=== PATIENT | male | born 1995 | race American Indian/Alaskan Native ===

== ENCOUNTER 2017-12-30 02:27 | Inpatient (IN) | payer MEDICAID ==
[2017-12-30] MEDS ORDERED: ATROVENT IH ONE ×2 (02:34→03:00)
[2017-12-30] MEDS ORDERED: PROVENTIL IH ONE ×2 (02:34→03:00)
[2017-12-30] MEDS ORDERED: MAGNESIUM SULFATE 2GM/50ML 2 GM/50 ML BAG IV ONE (02:40)
--- NOTE | 2017-12-30 02:45 | Emergency Department Report ---
ED Asthma HPI - General Stated Complaint: DREW/ASTHMA Time Seen by Provider: 12/30/17 02:38 Source: patient, EMS - History of Present Illness Initial Comments: Patient is 22 years old male history of asthma brought by EMS with acute asthma attack started this morning. Patient is me using his albuterol was no improvement. Patient denied any fever or chest pain, nausea or vomiting. MD Complaint: "asthma attack", shortness of breath, wheezing -: Gradual Asthma History: childhood onset Severity: moderate Context: none known Associated Symptoms: none Treatments Prior to Arrival: inhaled bronchodilator - Related Data Previous Rx's Medication Instructions Recorded Last Taken Type predniSONE [Deltasone] 50 mg PO QDAY #5 tab 11/02/15 Unknown Rx Allergies Allergy/AdvReac Type Severity Reaction Status Date / Time amoxicillin Allergy Hives Verified 11/02/15 09:58 Penicillins Allergy Hives Verified 11/02/15 09:58 ED Review of Systems ROS: Stated complaint: DREW/ASTHMA Other details as noted in HPI Comment: All other systems reviewed and negative Constitutional: denies: chills, fever ENT: denies: throat pain Respiratory: shortness of breath, wheezing. denies: cough, orthopnea, SOB with exertion, SOB at rest Cardiovascular: dyspnea on exertion. denies: chest pain, palpitations, edema, syncope, paroxysmal nocturnal dyspnea Gastrointestinal: denies: abdominal pain, nausea, vomiting, diarrhea, constipation, hematemesis, hematochezia Neurological: denies: headache ED Past Medical Hx - Past Medical History Hx Asthma: Yes - Surgical History Hx Appendectomy: Yes - Social History Smoking Status: Never Smoker Substance Use Type: None - Medications Home Medications: Home Medications Medication Instructions Recorded Confirmed Last Taken Type predniSONE [Deltasone] 50 mg PO QDAY #5 tab 11/02/15 Unknown Rx ED Physical Exam - General General appearance: alert, in distress - Head Head exam: Present: atraumatic, normocephalic - Eye Eye exam: Present: normal appearance, PERRL - ENT ENT exam: Present: normal exam, normal orophraynx, mucous membranes moist - Neck Neck exam: Present: normal inspection, full ROM. Absent: tenderness, meningismus - Respiratory Respiratory exam: Present: wheezes, accessory muscle use, decreased breath sounds, prolonged expiratory. Absent: rales, rhonchi, stridor, chest wall tenderness - Cardiovascular Cardiovascular Exam: Present: regular rate, normal rhythm, normal heart sounds - GI/Abdominal GI/Abdominal exam: Present: soft, normal bowel sounds. Absent: distended, tenderness, guarding, rebound, rigid, organomegaly, mass, bruit, pulsatile mass , hernia - Extremities Exam Extremities exam: Present: normal inspection, full ROM, normal capillary refill - Back Exam Back exam: Present: normal inspection, full ROM, CVA tenderness (L) - Neurological Exam Neurological exam: Present: alert, oriented X3, CN II-XII intact - Skin Skin exam: Present: warm, intact, normal color ED Course Vital Signs 12/30/17 12/30/17 12/30/17 02:28 02:30 02:34 Pulse Rate 100 H Pulse Rate [ Anterior Bilateral Throughout] Respiratory 24 Rate Respiratory Rate [Anterior Bilateral Throughout] Blood Pressure 127/80 127/80 O2 Sat by Pulse 97 96 98 Oximetry 12/30/17 12/30/17 12/30/17 02:40 02:46 03:00 Pulse Rate 86 97 H Pulse Rate [ 96 H Anterior Bilateral Throughout] Respiratory 16 16 Rate Respiratory 24 Rate [Anterior Bilateral Throughout] Blood Pressure 133/73 133/73 O2 Sat by Pulse 100 100 Oximetry 12/30/17 12/30/17 12/30/17 03:15 03:30 03:35 Pulse Rate 86 101 H Pulse Rate [ 94 H Anterior Bilateral Throughout] Respiratory 14 12 Rate Respiratory 22 Rate [Anterior Bilateral Throughout] Blood Pressure 141/63 127/77 O2 Sat by Pulse 100 99 Oximetry 12/30/17 12/30/17 12/30/17 03:42 03:45 03:50 Pulse Rate 109 H Pulse Rate [ 95 H Anterior Bilateral Throughout] Respiratory 11 L 18 Rate Respiratory 22 Rate [Anterior Bilateral Throughout] Blood Pressure 136/83 O2 Sat by Pulse 100 Oximetry 12/30/17 12/30/17 12/30/17 03:52 04:00 04:15 Pulse Rate 100 H 105 H Pulse Rate [ 102 H Anterior Bilateral Throughout] Respiratory 19 12 Rate Respiratory 22 Rate [Anterior Bilateral Throughout] Blood Pressure 144/70 155/74 O2 Sat by Pulse 97 84 Oximetry 12/30/17 12/30/17 04:30 04:45 Pulse Rate 111 H 111 H Pulse Rate [ Anterior Bilateral Throughout] Respiratory 16 16 Rate Respiratory Rate [Anterior Bilateral Throughout] Blood Pressure 145/76 143/72 O2 Sat by Pulse 95 97 Oximetry - Reevaluation(s) Reevaluation #1: 12/30/17 05:15 Patient is still very tight with diffuse wheezing and diminished breath sound. Patient will need to be admitted to the hospital for further management. I discussed the patient is Dr. Slade who advised to bridge to Med-Surg. ED Medical Decision Making - Lab Data Result diagrams: 12/30/17 02:48 12/30/17 02:48 - Radiology Data Radiology results: report reviewed Referring Physician: XUAN GUTIERREZ Patient Name: NAKITA MURGUIA Date of : 1995 Sex: Male Report Date: 2017-12-30 Report Status: Finalized Findings [facility] [address] [place] [address] XRay Report Signed Patient: NAKITA MURGUIA MR#: [id number] : 1995 Acct:[id number] Age/Sex: 22 / M ADM Date: 12/30/17 Loc: ED Attending Dr: Ordering Physician: XUAN GUTIERREZ Date of Service: 12/30/17 Procedure(s): XR chest 1V ap Accession Number(s): [id number] cc: XUAN GUTIERREZ Fluoro Time In Minutes: FINAL REPORT EXAM: XR CHEST 1V AP HISTORY: Asthma COMPARISON: None available. FINDINGS: Frontal view(s) of the chest obtained. Cardiac silhouette within normal limits. No gross consolidation or effusion. No pneumothorax. IMPRESSION: No grossly acute findings. Transcribed By: LMA Dictated By: ELISABETH JEAN BAPTISTE MD Electronically Authenticated By: ELISABETH JEAN BAPTISTE MD Signed Date/Time: 12/30/17254 DD/ 4 TD/TT: 12/30/17254 Critical care attestation.: If time is entered above; I have spent that time in minutes in the direct care of this critically ill patient, excluding procedure time. ED Disposition Clinical Impression: Acute asthma exacerbation Disposition: OP ADMIT IP TO THIS HOSP Is pt being admited?: Yes Condition: Stable
[2017-12-30] MEDS ORDERED: MAGNESIUM SULFATE IV ONE (02:54)
--- NOTE | 2017-12-30 02:59 | XRay Report ---
FINAL REPORT EXAM: XR CHEST 1V AP HISTORY: Asthma COMPARISON: None available. FINDINGS: Frontal view(s) of the chest obtained. Cardiac silhouette within normal limits. No gross consolidation or effusion. No pneumothorax. IMPRESSION: No grossly acute findings.
[2017-12-30 03:16] LABS: BUN/Creatinine Ratio 14; Blood Urea Nitrogen 13 mg/dL (9-20); Hemolysis Index 12
[2017-12-30 03:22] LABS: Hematocrit 44.2 % (35.5-45.6); Hemoglobin 15.2 gm/dl (11.8-15.2); Mean Corpuscular HGB Conc 34 % (32-34); Mean Corpuscular Hemoglobin 31 pg (28-32); Mean Corpuscular Volume 91 fl (84-94); Platelet Count 279 K/mm3 (140-440); Red Blood Count 4.89 M/mm3 (3.65-5.03); Red Cell Distribution Width 12.3 % (13.2-15.2)
[2017-12-30] MEDS ORDERED: S2 RACEPINEPHRINE 2.25% IH ONE (03:36)
[2017-12-30] MEDS ORDERED: XOPENEX IH ONE (05:15)
[2017-12-30 05:30] LABS: Total Cells Counted 100
[2017-12-30 05:31] LABS: Platelet Estimate Consistent w Auto
[2017-12-30] MEDS ORDERED: PROVENTIL IH PRN (09:17)
[2017-12-30] MEDS: DUONEB *Not for PRN Use IH SCH ×2 (09:22→15:53)
[2017-12-30] MEDS ORDERED: NORCO 5/325 PO PRN (09:30)
[2017-12-30] MEDS ORDERED: APRESOLINE IV PRN (09:30)
[2017-12-30] MEDS ORDERED: ALUM-MAG HYDROX-SIMETH 200-200-20MG/5ML PO PRN (09:30)
[2017-12-30] MEDS ORDERED: PULMICORT IH SCH (09:30)
[2017-12-30] MEDS ORDERED: TYLENOL PO PRN (09:30)
[2017-12-30] MEDS ORDERED: REGLAN PO PRN (09:30)
--- NOTE | 2017-12-30 10:43 | History and Physical Report ---
History of Present Illness Date of examination: 12/30/17 Date of admission: 12/30/17 05:17 Chief complaint: Difficulty breathing History of present illness: This is a 22 y/o male with h/o asthma brought by EMS with acute asthma attack started this morning. Patient was using his albuterol at home without any improvement. Patient denied any fever or chest pain, nausea or vomiting. He was given nebulizer breathing treatment in the ER along with high dose solumedrol. His symptom improved somewhat but did not resolve completely. His chest x-ray showed no infiltrates. He will be admitted for further evaluation and management. Past medical History: h/o asthma Past surgical History: s/p appendectomy Social History: Lives with family, denies any smoking, drinking and elicit drug abuse. Family History: Significant for hypertension Review of System: Constitutional: no fever, no chills, no weight loss Ears, eyes, nose, mouth and throat: no nasal congestion, no nasal discharge, no sinus pressure, no vision change, no red eye. Neck: No neck pain or rigidity. Cardiovascular: No chest pain, no orthopnea, no palpitations, no leg swelling Respiratory: + shortness of breath, + cough, + congestion, + wheezing Gastrointestinal: no abdominal pain, no nausea, no vomiting Genitourinary : no dysuria, no hematuria Musculoskeletal: no joint swelling or muscle ache Integumentary: no rash, no pruritis Neurological: no parathesias, no numbness, no tingling Endocrine: no cold or heat intolerance, no polyuria or polydipsia Hematologic/Lymphatic: no easy bruising, no easy bleeding, no gland swelling Allergic/Immunologic: no urticaria, no angioedema. Medications and Allergies Allergies Allergy/AdvReac Type Severity Reaction Status Date / Time amoxicillin Allergy Hives Verified 11/02/15 09:58 Penicillins Allergy Hives Verified 11/02/15 09:58 Home Medications Medication Instructions Recorded Confirmed Last Taken Type ALBUTEROL Inhaler [Proair] 1 - 2 puff IH QDAY 12/30/17 12/30/17 12/30/17 History Active Meds: Active Medications Acetaminophen (Tylenol) 650 mg PO Q4H PRN PRN Reason: Pain MILD(1-3)/Fever >100.5/RODRIGUES Acetaminophen/Hydrocodone Bitart (Cawood 5/325) 2 each PO Q6H PRN PRN Reason: Pain, Moderate (4-6) Al Hydrox/Mg Hydrox/Simethicone (Alum-Mag Hydrox-Simeth [id number]/5ml) 30 ml PO Q4H PRN PRN Reason: Indigestion Albuterol (Proventil) 2.5 mg IH Q4HRT PRN PRN Reason: Shortness Of Breath Albuterol/Ipratropium (Duoneb *Not For Prn Use*) 1 ampul IH TIDRT [facility] Last Admin: 12/30/17 09:22 Dose: 1 ampul Budesonide (Pulmicort) 0.5 mg IH Q12HRT [facility] Last Admin: 12/30/17 09:22 Dose: 0.5 mg Docusate Sodium (Colace) 100 mg PO BID NICHOLAS Enoxaparin Sodium (Lovenox) 40 mg SUB-Q QDAY@2200 NICHOLAS Hydralazine HCl (Apresoline) 5 mg IV Q30MIN PRN PRN Reason: Hypertension Insulin Human Regular (Humulin R) 0 units SUB-Q [facility]; Protocol Methylprednisolone Sodium Succinate (Solu-Medrol) 60 mg IV Q8HR NICHOLAS Metoclopramide HCl (Reglan) 10 mg PO Q6H PRN PRN Reason: Nausea And Vomiting Pantoprazole Sodium (Protonix) 40 mg PO QDAY [facility] Exam - Physical Exam Narrative exam: GENERAL: well-developed and well-nourished male lying on bed appeared to be in no discomfort. HEENT: Normocephalic. Atraumatic. No conjunctival congestion or icterus. Patient has moist mucous membranes. NECK: Supple. Trachea midline. CHEST/LUNGS: +wheezes auscultated bilaterally, breathing symmetrical HEART/CARDIOVASCULAR: Regular in rate and rhythm. S1 and S2 positive. ABDOMEN: Abdomen is soft, nontender. Patient has normal bowel sounds. SKIN: There is no rash. Warm and dry. NEURO: No focal motor deficit. Follows command. MUSCULOSKELETAL: No joint effusion or tenderness. EXTRIMITY: No edema, no cyanosis or clubbing. PSYCH: Cooperative. - Constitutional Vitals: Temp Pulse Resp BP Pulse Ox 98.2 F 117 H 20 116/65 98 12/30/17 08:06 12/30/17 09:34 12/30/17 09:34 12/30/17 08:06 12/30/17 09:14 Results - Labs CBC & Chem 7: 12/30/17 02:48 12/30/17 02:48 Labs: Abnormal lab results 12/30/17 12/30/17 Range/Units 02:48 02:48 RDW 12.3 L (13.2-15.2) % Seg Neuts % (Manual) 21.0 L (40.0-70.0) % Lymphocytes % (Manual) 65.0 H (13.4-35.0) % Eosinophils % (Manual) 9.0 H (0.0-4.3) % Seg Neutrophils # Man 1.3 L (1.8-7.7) K/mm3 Eosinophils # (Manual) 0.5 H (0.0-0.4) K/mm3 Glucose 115 H (75-100) mg/dL - Imaging and Cardiology Chest x-ray: report reviewed Assessment and Plan Acute asthma exacerbation Acute hypoxic respiratory failure due to asthma exacerbation - We'll admit the patient to telemetry - Will provide scheduled nebulizers and breathing treatment - Place on empiric steroid and antibiotic - will get sputum culture, chest x-ray was unremarkable - Provide supplemental oxygen to keep oxygen saturation above 92% - Consider to consult pulmonary if no improvement in next 24 hours - We'll place on sliding scale of insulin as patient will be on empiric steroid - We will resume home medications, monitor BP - Provide DVT prophylaxis with Lovenox.
[2017-12-30] MEDS ORDERED: HumuLIN R SUB-Q SCH (11:30)
[2017-12-30] MEDS ORDERED: PROTONIX PO SCH (12:00)
[2017-12-30] MEDS ORDERED: COLACE PO SCH (12:00)
--- NOTE | 2017-12-30 13:30 | Discharge Summary ---
Providers - Providers Date of Admission: 12/30/17 05:17 Date of discharge: 12/30/17 Attending physician: JOSE LO Primary care physician: CAREY PORTER Hospitalization Condition: Stable Hospital course: This is a 22 y/o male with h/o asthma brought by EMS with acute asthma attack started this morning. Patient was using his albuterol at home without any improvement. Patient denied any fever or chest pain, nausea or vomiting. He was given nebulizer breathing treatment in the ER along with high dose solumedrol. His symptom improved somewhat but did not resolve completely. His chest x-ray showed no infiltrates. He will be admitted for further evaluation and management. His symptom improved significantly after couple rounds of breathing treatments and empiric steroid. Patient did not want to stay in the hospital overnight and wanted to continue the medications at home and follow up outpatient. He was counseled about the recurrence of symptoms and most likely symptom could get worse once discharged before due time. He verbalizes understanding and still wanted to go home. His vitals were stable and developed wheezing was much improved. He was tolerating diet and ambulating independently without any short of breath. He was discharged home in stable condition. Discharge diagnosis: Acute hypoxic respiratory failure due to asthma exacerbation, resolved Acute exacerbation of asthma, significantly improved Sinus tachycardia and tachypnea, due to asthma exacerbation, improved Disposition: DC-01 TO HOME OR SELFCARE Time spent for discharge: 32 minutes Core Measure Documentation - Palliative Care Palliative Care/ Comfort Measures: Not Applicable - Core Measures Any of the following diagnoses?: none Exam - Physical Exam Narrative exam: GENERAL: well-developed and well-nourished male lying on bed appeared to be in no discomfort. HEENT: Normocephalic. Atraumatic. No conjunctival congestion or icterus. Patient has moist mucous membranes. NECK: Supple. Trachea midline. CHEST/LUNGS: Very few wheezes auscultated bilaterally, breathing symmetrical HEART/CARDIOVASCULAR: Regular in rate and rhythm. S1 and S2 positive. ABDOMEN: Abdomen is soft, nontender. Patient has normal bowel sounds. SKIN: There is no rash. Warm and dry. NEURO: No focal motor deficit. Follows command. MUSCULOSKELETAL: No joint effusion or tenderness. EXTRIMITY: No edema, no cyanosis or clubbing. PSYCH: Cooperative. - Constitutional Vitals: Temp Pulse Resp BP Pulse Ox 98.3 F 108 H 16 113/43 98 12/30/17 11:41 12/30/17 11:41 12/30/17 11:41 12/30/17 11:41 12/30/17 11:41 Plan Activity: advance as tolerated Weight Bearing Status: Weight Bear as Tolerated Diet: regular Follow up with: ROD ELDER MD [Staff Physician] - 3-5 Days Prescriptions: ALBUTEROL Inhaler [ProAir HFA Inhaler] 1 - 2 puff IH QDAY 30 Days inha Fluticasone/Salmeterol [Advair 250-50 Diskus] 1 each IH BID 30 Days [facility] predniSONE [Deltasone] 50 mg PO QDAY #7 tab
[2017-12-30 16:26] VITALS: BP 124/42
[2017-12-30] MEDS ORDERED: LOVENOX SUB-Q SCH (22:00)
== END 2017-12-30 18:11 | disposition home or self-care (01) | DRG 189 ==
LOC: ED 02:27 → 3A 05:17
PROVIDERS: ADMIT Internal Medicine; ATTEND Internal Medicine
PROC: 5A09357 Assistance with Respiratory Ventilation, Less than 24 Consecutive Hours, Continuous Positive Airway Pressure (ICD-10-PCS; principal; 2017-12-30)
DX: J96.01 Acute respiratory failure with hypoxia (principal); J45.901 Unspecified asthma with (acute) exacerbation; Z88.1 Allergy status to other antibiotic agents; Z88.0 Allergy status to penicillin; Z90.49 Acquired absence of other specified parts of digestive tract; Z82.49 Family history of ischemic heart disease and other diseases of the circulatory system
CPT/HCPCS: 36415; 71045; 80048; 85007; 85025; 94640; 94660; 96374; 96375; J2930; J3475

== ENCOUNTER 2019-08-06 22:13 | Observation (INO) | payer MEDICAID ==
[2019-08-06] MEDS ORDERED: IPRATROPIUM 0.02% NEBU 2.5 ML IH ONE (22:22)
[2019-08-06] MEDS ORDERED: LEVALBUTEROL 0.63 MG/3 ML NEBU IH ONE (22:24)
[2019-08-06] MEDS ORDERED: MAGNESIUM SULFATE 2 GM/50 ML BAG IV ONE (22:24)
--- NOTE | 2019-08-06 22:31 | Emergency Department Report ---
ED Asthma HPI - General Stated Complaint: ASTHMA Time Seen by Provider: 08/06/19 22:22 - History of Present Illness Initial Comments: Patient is 24 years old male with history of asthma, with history of respiratory arrest twice. Last intubation was last year. Patient presented to the ER via EMS for evaluation of sudden onset of shortness of breath and wheezing approximately one hour prior to coming to the ER. EMS stated that patient was tachypnic with diffuse wheezing. Patient given 5 mg of albuterol and Solu- Medrol 125 mg IV. Patient denied any recent history of fever, chills or cough. MD Complaint: "asthma attack", shortness of breath, wheezing -: Sudden, hour(s) Severity: severe - Related Data Previous Rx's Medication Instructions Recorded Last Taken Type ALBUTEROL Inhaler (OR & NICU) 1 - 2 puff IH QDAY 30 Days inha 12/30/17 Unknown Rx [ProAir HFA Inhaler] Fluticasone/Salmeterol [Advair 1 each IH BID 30 Days [facility] 12/30/17 Unknown Rx 250-50 Diskus] predniSONE [Deltasone] 50 mg PO QDAY #7 tab 12/30/17 Unknown Rx Allergies Allergy/AdvReac Type Severity Reaction Status Date / Time amoxicillin Allergy Hives Verified 11/02/15 09:58 Penicillins Allergy Hives Verified 11/02/15 09:58 ED Review of Systems ROS: Stated complaint: ASTHMA Other details as noted in HPI Comment: All other systems reviewed and negative Constitutional: denies: chills, fever Respiratory: shortness of breath, SOB with exertion, SOB at rest, wheezing. denies: cough Cardiovascular: denies: chest pain, palpitations Gastrointestinal: denies: abdominal pain, nausea, vomiting Musculoskeletal: denies: back pain ED Past Medical Hx - Past Medical History Hx Congestive Heart Failure: No Hx Diabetes: No Hx Asthma: Yes Hx COPD: No - Surgical History Hx Appendectomy: Yes - Social History Smoking Status: Never Smoker - Medications Home Medications: Home Medications Medication Instructions Recorded Confirmed Last Taken Type ALBUTEROL Inhaler (OR & NICU) 1 - 2 puff IH QDAY 30 Days inha 12/30/17 Unknown Rx [ProAir HFA Inhaler] Fluticasone/Salmeterol [Advair 1 each IH BID 30 Days [facility] 12/30/17 Unkn own Rx 250-50 Diskus] predniSONE [Deltasone] 50 mg PO QDAY #7 tab 12/30/17 Unknown Rx ED Physical Exam - General General appearance: alert, in distress - Head Head exam: Present: atraumatic, normocephalic, normal inspection - ENT ENT exam: Present: normal exam, normal orophraynx, mucous membranes moist - Neck Neck exam: Present: normal inspection, full ROM. Absent: tenderness, meningismus, lymphadenopathy, thyromegaly - Respiratory Respiratory exam: Present: normal lung sounds bilaterally - Cardiovascular Cardiovascular Exam: Present: regular rate, normal rhythm, normal heart sounds - GI/Abdominal GI/Abdominal exam: Present: soft, normal bowel sounds. Absent: distended, tenderness, guarding, rebound, rigid, organomegaly, mass, bruit, pulsatile mass, hernia - Extremities Exam Extremities exam: Present: normal inspection, full ROM, normal capillary refill. Absent: pedal edema, calf tenderness - Back Exam Back exam: Present: normal inspection, full ROM. Absent: CVA tenderness (R), CVA tenderness (L) - Neurological Exam Neurological exam: Present: alert, oriented X3, CN II-XII intact - Skin Skin exam: Present: warm, intact, normal color ED Course Vital Signs 08/06/19 08/06/19 08/06/19 22:43 22:48 23:37 Pulse Rate 109 H Pulse Rate [ 121 H 120 H Bilateral] Respiratory 19 Rate Respiratory 15 12 Rate [Bilateral ] Blood Pressure 149/70 Blood Pressure 149/70 [Left] O2 Sat by Pulse 100 Oximetry ED Medical Decision Making - Lab Data Result diagrams: 08/06/19 23:00 08/06/19 23:00 - Radiology Data Radiology results: image reviewed - Medical Decision Making Patient is 24 years old male with history of asthma, with history of respiratory arrest twice. Last intubation was last year. Patient presented to the ER via EMS for evaluation of sudden onset of shortness of breath and wheezing approximately one hour prior to coming to the ER. EMS stated that patient was tachypnic with diffuse wheezing. Patient given 5 mg of albuterol and Solu- Medrol 125 mg IV. Patient denied any recent history of fever, chills or cough. Patient received Xopenex, albuterol, Atrovent and magnesium sulfate. Patient stated that he started feeling better but is still tight. Patient does not re quire intubation at this moment. I discussed the patient with Dr. Tiarra Walton, she agreed to admit the patient to the hospital for further management. Critical Care Time: Yes Critical care time in (mins) excluding proc time.: 30 Critical care attestation.: If time is entered above; I have spent that time in minutes in the direct care of this critically ill patient, excluding procedure time. ED Disposition Clinical Impression: Acute asthma exacerbation Disposition: 09 OP ADMIT IP TO THIS HOSP Is pt being admited?: Yes Condition: Stable Referrals: PRIMARY CARE, [Primary Care Provider] - 3-5 Days
[2019-08-06] MEDS ORDERED: ALBUTEROL 2.5 MG/3 ML NEBU IH ONE (23:26)
[2019-08-07 00:02] LABS: Basophils # (Auto) 0.1 K/mm3 (0.0-0.1); Basophils % (Auto) 0.7 % (0.0-1.8); Eosinophils # (Auto) 0.4 K/mm3 (0.0-0.4); Eosinophils % (Auto) 4.9 % (0.0-4.3); Hematocrit 47.8 % (35.5-45.6); Lymphocytes # (Auto) 1.5 K/mm3 (1.2-5.4); Mean Corpuscular HGB Conc 34 % (32-34); Mean Corpuscular Volume 93 fl (84-94); Monocytes # (Auto) 0.4 K/mm3 (0.0-0.8); Monocytes % (Auto) 4.6 % (0.0-7.3); Platelet Count 311 K/mm3 (140-440); Red Blood Count 5.16 M/mm3 (3.65-5.03); Red Cell Distribution Width 12.4 % (13.2-15.2)
[2019-08-07 00:33] LABS: BUN/Creatinine Ratio 15; Blood Urea Nitrogen 17 mg/dL (9-20); Calcium 9.9 mg/dL (8.4-10.2); Hemolysis Index 27
--- NOTE | 2019-08-07 01:00 | XRay Report ---
CHEST 1 VIEW 2257 INDICATION / CLINICAL INFORMATION: Asthma. COMPARISON: None available. FINDINGS: SUPPORT DEVICES: None HEART / MEDIASTINUM: No significant abnormality. LUNGS / PLEURA: No significant pulmonary or pleural abnormality. No pneumothorax. ADDITIONAL FINDINGS: No significant additional findings. IMPRESSION: No significant acute abnormality Signer Name: Gavin Tellez MD Signed: 08/07/2019 12:56 AM Workstation Name: [id number]
[2019-08-07] MEDS ORDERED: ACETAMINOPHEN 325 MG TAB PO PRN (01:31)
[2019-08-07] MEDS ORDERED: ONDANSETRON 4 MG/2 ML INJ IV PRN (01:31)
--- NOTE | 2019-08-07 01:38 | History and Physical Report ---
History of Present Illness Date of examination: 08/07/19 History of present illness: 24 year old man with history of asthma comes to the emergency room complaints of cough productive of white phlegm, shortness of breath that started 1 week past since the weather is change. Using his nebulizer treatments without any pre ventive symptoms, today symptoms worsen psych into the emergency room for further evaluation Review Of Systems: Constitutional: no weight loss, fever, chills Ears, eyes, nose, mouth and throat: no nasal congestion, no nasal discharge, no sinus pressure, blurry vision, diplopia Neck: No neck pain or rigidity. Cardiovascular: No palpitations, chest pain Respiratory:+ shortness of breath, cough Gastrointestinal: No hematochezia, abdominal pain Genitourinary : no dysuria, frequency Musculoskeletal: no muscle ache , joint pain Integumentary: no rash, no pruritis Neurological: no parathesias, focal weakness Endocrine: no cold or heat intolerance, no polyuria or polydipsia Hematologic/Lymphatic: no easy bruising, no easy bleeding, no gland swelling Allergic/Immunologic: no urticaria, no angioedema. PAST MEDICAL HISTORY:asthma PAST SURGICAL HISTORY: Appendectomy FAMILY HISTORY:hypertension, diabetes SOCIAL HISTORY: + tobacco, Denies drugs, alcohol Medications and Allergies Allergies Allergy/AdvReac Type Severity Reaction Status Date / Time amoxicillin Allergy Hives Verified 11/02/15 09:58 Penicillins Allergy Hives Verified 11/02/15 09:58 Home Medications Medication Instructions Recorded Confirmed Last Taken Type ALBUTEROL Inhaler (OR & NICU) 1 - 2 puff IH QDAY 30 Days inha 12/30/17 Unknown Rx [ProAir HFA Inhaler] Fluticasone/Salmeterol [Advair 1 each IH BID 30 Days [facility] 12/30/17 Unknown Rx 250-50 Diskus] predniSONE [Deltasone] 50 mg PO QDAY #7 tab 12/30/17 Unknown Rx Active Meds: Active Medications Acetaminophen (Tylenol) 650 mg PO Q4H PRN PRN Reason: Pain MILD(1-3)/Fever >100.5/RODRIGUES Albuterol/Ipratropium (Duoneb *Not For Prn Use*) 1 ampul IH Q6HRT NICHOLAS Enoxaparin Sodium (Enoxaparin) 30 mg SUB-Q QDAY NICHOLAS Methylprednisolone Sodium Succinate (Solu-Medrol) 125 mg IV Q6HR NICHOLAS Ondansetron HCl (Zofran) 4 mg IV Q8H PRN PRN Reason: Nausea And Vomiting Sodium Chloride (Sodium Chloride Flush Syringe 10 Ml) 10 ml IV BID NICHOLAS Sodium Chloride (Sodium Chloride Flush Syringe 10 Ml) 10 ml IV PRN PRN PRN Reason: LINE FLUSH Exam - Physical Exam Narrative exam: General Apperance: The patient sitting in bed no acute distress HEENT: Normocephalic, atraumatic. Pupils equally round and reactive to light, extraocular movement intact, and no sclericterus or JVD or thyromegaly or nodule. Neck supple, no carotid bruit, mucous membranes moist, no exudate or erythema Heart: S1-S2, regular is rhythm Lungs: Wheezing bilaterally, breathing comfortable Abdomen: Positive bowel sounds, soft, nontender, nondistended, no organomegaly Extremities: No edema cyanosis clubbing Skin: no rash, nodule, warm and dry Neuro:CN 2 -12 intact, motor/sensory intact, speech is fluent - Constitutional Vitals: Temp Pulse Resp BP Pulse Ox 120 H 12 149/70 100 08/06/19 23:37 08/06/19 23:37 08/06/19 22:43 08/06/19 22:43 Results - Labs CBC & Chem 7: 08/06/19 23:00 08/06/19 23:00 Labs: Abnormal lab results 08/06/19 08/06/19 Range/Units 23:00 23:00 RBC 5.16 H (3.65-5.03) M/mm3 Hgb 16.0 H (11.8-15.2) gm/dl Hct 47.8 H (35.5-45.6) % RDW 12.4 L (13.2-15.2) % Eos % (Auto) 4.9 H (0.0-4.3) % Seg Neutrophils % 71.8 H (40.0-70.0) % Glucose 107 H (75-100) mg/dL - Imaging and Cardiology EKG: image reviewed Chest x-ray: report reviewed Assessment and Plan Assessment Asthma exacerbation Plan Admit to medicine Start high-dose steroids, breathing treatments DVT prophylaxis
[2019-08-07] MEDS ORDERED: methylPREDNISolone Sod Succinate 125 MG/2 ML INJ IV SCH (02:00)
[2019-08-07] MEDS: IPRATROPIUM/ALBUTEROL SULFATE 3 ML AMPUL.NEB IH SCH ×2 (03:08→07:42)
[2019-08-07 05:36] LABS: Hematocrit 49.2 % (35.5-45.6); Hemoglobin 16.3 gm/dl (11.8-15.2); Mean Corpuscular HGB Conc 33 % (32-34); Mean Corpuscular Volume 93 fl (84-94); Platelet Count 299 K/mm3 (140-440); Red Blood Count 5.27 M/mm3 (3.65-5.03); Red Cell Distribution Width 12.6 % (13.2-15.2)
[2019-08-07 05:48] LABS: BUN/Creatinine Ratio 18; Blood Urea Nitrogen 18 mg/dL (9-20); Calcium 9.4 mg/dL (8.4-10.2); Hemolysis Index 37
[2019-08-07 07:28] LABS: Basophils % (Manual) 0 % (0.0-1.8); Eosinophils % (Manual) 0 % (0.0-4.3); Monocytes % (Manual) 0 % (0.0-7.3); Total Cells Counted 100
[2019-08-07 07:29] LABS: Ovalocytes Few
[2019-08-07 07:30] LABS: Large Platelets 1+; Macrocytosis Rare; Platelet Estimate Consistent w Auto
--- NOTE | 2019-08-07 07:49 | Progress Note ---
Assessment and Plan Assessment and plan: Patient is a 24 year old man with history of asthma comes to the emergency room complaints of cough productive of white phlegm, shortness of breath that started 1 week past since the weather is change. Using his nebulizer treatments without any preventive symptoms, today symptoms worsen so he came to the emergency room for further evaluation Asthma exacerbation Plan Admit to medicine Start high-dose steroids, breathing treatments DVT prophylaxis prolonged inpatient services 32 minutes History Interval history: Patient was seen and examined. Follow-up on current diagnosis of Asthma exacerbation. Overnight uneventful. Patient denies any chest pain, [place] sea/vomiting or severe headaches. Imaging, nursing note, chart, labs and old chart reviewed. Discussed with patient. Hospitalist Physical - Physical exam Narrative exam: Gen: WDWN, NAD, Awake, Alert, Orientated HEENT: NCAT, EOMI, PERRL, OP Clear Neck: supple, no adenopathy, no thyromegaly, no JVD CVS/Heart: RRR, normal S1S2, pulses present bilaterally Chest/Lungs: bilateral wheezing, Symmetrical chest expansion, good air entry bilaterally GI/Abdomen: soft, NTND, good bowel sounds, no guarding or rebound /Bladder: no suprapubic tenderness, no CVA or paraspinal tenderness Extermity/Skin: no c/c/e, no obvious rash MSK: FROM x 4 Neuro: CN 2-12 grossly intact, no new focal deficits Psych: calm - Constitutional Vitals: Temp Pulse Resp BP Pulse Ox 100 H 16 129/71 97 08/07/19 07:33 08/07/19 07:33 08/07/19 07:33 08/07/19 07:33 Results - Labs CBC & Chem 7: 08/07/19 05:19 08/07/19 05:19 Labs: Laboratory Last Values WBC 12.5 K/mm3 (4.5-11.0) H 08/07/19 05:19 RBC 5.27 M/mm3 (3.65-5.03) H 08/07/19 05:19 Hgb 16.3 gm/dl (11.8-15.2) H 08/07/19 05:19 Hct 49.2 % (35.5-45.6) H 08/07/19 05:19 MCV 93 fl (84-94) 08/07/19 05:19 MCH 31 pg (28-32) 08/07/19 05:19 MCHC 33 % (32-34) 08/07/19 05:19 RDW 12.6 % (13.2-15.2) L 08/07/19 05:19 Plt Count 299 K/mm3 (140-440) 08/07/19 05:19 Lymph % (Auto) 18.0 % (13.4-35.0) 08/06/19 23:00 [place] % (Auto) 4.6 % (0.0-7.3) 08/06/19 23:00 Eos % (Auto) 4.9 % (0.0-4.3) H 08/06/19 23:00 Baso % (Auto) 0.7 % (0.0-1.8) 08/06/19 23:00 Lymph # 1.5 K/mm3 (1.2-5.4) 08/06/19 23:00 [place] # 0.4 K/mm3 (0.0-0.8) 08/06/19 23:00 Eos # 0.4 K/mm3 (0.0-0.4) 08/06/19 23:00 Baso # 0.1 K/mm3 (0.0-0.1) 08/06/19 23:00 Add Manual Diff Complete 08/07/19 05:19 Total Counted 100 08/07/19 05:19 Seg Neutrophils % [employer] Installer 08/07/19 05:19 Seg Neuts % (Manual) 99.0 % (40.0-70.0) H 08/07/19 05:19 Band Neutrophils % 0 % 08/07/19 05:19 Lymphocytes % (Manual) 1.0 % (13.4-35.0) L 08/07/19 05:19 Reactive Lymphs % (Man) 0 % 08/07/19 05:19 Monocytes % (Manual) 0 % (0.0-7.3) 08/07/19 05:19 Eosinophils % (Manual) 0 % (0.0-4.3) 08/07/19 05:19 Basophils % (Manual) 0 % (0.0-1.8) 08/07/19 05:19 Metamyelocytes % 0 % 08/07/19 05:19 Myelocytes % 0 % 08/07/19 05:19 Promyelocytes % 0 % 08/07/19 05:19 Blast Cells % 0 % 08/07/19 05:19 Nucleated RBC % Not Reportable 08/07/19 05:19 Seg Neutrophils # 6.0 K/mm3 (1.8-7.7) 08/06/19 23:00 Seg Neutrophils # Man 12.4 K/mm3 (1.8-7.7) H 08/07/19 05:19 Band Neutrophils # 0.0 K/mm3 08/07/19 05:19 Lymphocytes # (Manual) 0.1 K/mm3 (1.2-5.4) L 08/07/19 05:19 Abs React Lymphs (Man) 0.0 K/mm3 08/07/19 05:19 Monocytes # (Manual) 0.0 K/mm3 (0.0-0.8) 08/07/19 05:19 Eosinophils # (Manual) 0.0 K/mm3 (0.0-0.4) 08/07/19 05:19 Basophils # (Manual) 0.0 K/mm3 (0.0-0.1) 08/07/19 05:19 Metamyelocytes # 0.0 K/mm3 08/07/19 05:19 Myelocytes # 0.0 K/mm3 08/07/19 05:19 Promyelocytes # 0.0 K/mm3 08/07/19 05:19 Blast Cells # 0.0 K/mm3 08/07/19 05:19 WBC Morphology Not Reportable 08/07/19 05:19 Hypersegmented Neuts Not Reportable 08/07/19 05:19 Hyposegmented Neuts Not Reportable 08/07/19 05:19 Hypogranular Neuts Not Reportable 08/07/19 05:19 Smudge Cells Not Reportable 08/07/19 05:19 Toxic Granulation Not Reportable 08/07/19 05:19 Toxic Vacuolation Not Reportable 08/07/19 05:19 Dohle Bodies Not Reportable 08/07/19 05:19 Pelger-Huet Anomaly Not Reportable 08/07/19 05:19 Raul Rods Not Reportable 08/07/19 05:19 Platelet Estimate Consistent w auto 08/07/19 05:19 Clumped Platelets Not Reportable 08/07/19 05:19 Plt Clumps, EDTA Not Reportable 08/07/19 05:19 Large Platelets 1+ 08/07/19 05:19 Giant Platelets Not Reportable 08/07/19 05:19 Platelet Satelliting Not Reportable 08/07/19 05:19 Plt Morphology Comment Not Reportable 08/07/19 05:19 RBC Morphology Not Reportable 08/07/19 05:19 Dimorphic RBCs Not Reportable 08/07/19 05:19 Polychromasia Not Reportable 08/07/19 05:19 Hypochromasia Not Reportable 08/07/19 05:19 Poikilocytosis Not Reportable 08/07/19 05:19 Anisocytosis Not Reportable 08/07/19 05:19 Microcytosis Not Reportable 08/07/19 05:19 Macrocytosis Rare 08/07/19 05:19 Spherocytes Not Reportable 08/07/19 05:19 Pappenheimer Bodies Not Reportable 08/07/19 05:19 Sickle Cells Not Reportable 08/07/19 05:19 Target Cells Not Reportable 08/07/19 05:19 Tear Drop Cells Not Reportable 08/07/19 05:19 Ovalocytes Few 08/07/19 05:19 Helmet Cells Not Reportable 08/07/19 05:19 Montano-Hopkins Bodies Not Reportable 08/07/19 05:19 [place] Rings Not Reportable 08/07/19 05:19 Tanika Cells Not Reportable 08/07/19 05:19 Bite Cells Not Reportable 08/07/19 05:19 Crenated Cell Not Reportable 08/07/19 05:19 Elliptocytes Not Reportable 08/07/19 05:19 Acanthocytes (Spur) Not Reportable 08/07/19 05:19 Rouleaux Not Reportable 08/07/19 05:19 Hemoglobin C Crystals Not Reportable 08/07/19 05:19 Schistocytes Not Reportable 08/07/19 05:19 Malaria parasites Not Reportable 08/07/19 05:19 Miguel Angel Bodies Not Reportable 08/07/19 05:19 Hem Pathologist Commnt No 08/07/19 05:19 Sodium 140 mmol/L (137-145) 08/07/19 05:19 Potassium 4.9 mmol/L (3.6-5.0) 08/07/19 05:19 Chloride 103.5 mmol/L (98-107) 08/07/19 05:19 Carbon Dioxide 21 mmol/L (22-30) L 08/07/19 05:19 Anion Gap 20 mmol/L 08/07/19 05:19 BUN 18 mg/dL (9-20) 08/07/19 05:19 Creatinine 1.0 mg/dL (0.8-1.5) 08/07/19 05:19 Estimated GFR > 60 ml/min 08/07/19 05:19 BUN/Creatinine Ratio 18 % 08/07/19 05:19 Glucose 154 mg/dL (75-100) H 08/07/19 05:19 Calcium 9.4 mg/dL (8.4-10.2) 08/07/19 05:19 Active Medications - Current Medications Current Medications: Generic Name Dose Route Start Last Admin Trade Name Freq PRN Reason Stop Dose Admin Acetaminophen 650 mg 08/07/19 01:31 Tylenol PO Q4H PRN Pain MILD(1-3)/Fever >100.5/RODRIGUES Albuterol/Ipratropium 1 ampul 08/07/19 02:00 08/07/19 07:42 Duoneb *Not For Prn Use* IH 1 ampul Q6HRT NICHOLAS Administration Enoxaparin Sodium 40 mg 08/07/19 10:00 Enoxaparin SUB-Q QDAY@1000 NICHOLAS Methylprednisolone Sodium Succinate 125 mg 08/07/19 02:00 08/07/19 05:05 Solu-Medrol IV 125 mg Q6H NICHOLAS Administration Ondansetron HCl 4 mg 08/07/19 01:31 Zofran IV Q8H PRN Nausea And Vomiting Sodium Chloride 10 ml 08/07/19 10:00 Sodium Chloride Flush Syringe 10 Ml IV BID NICHOLAS Sodium Chloride 10 ml 08/07/19 01:31 Sodium Chloride Flush Syringe 10 Ml IV PRN PRN LINE FLUSH
--- NOTE | 2019-08-07 09:18 | Discharge Summary ---
Providers - Providers Date of Admission: 08/07/19 01:31 Date of discharge: 08/07/19 Attending physician: HI GREENE Primary care physician: ANNA STUBBS MD Hospitalization Condition: Stable Hospital course: Patient is a 24 year old man with history of asthma comes to the emergency room complaints of cough productive of white phlegm, shortness of breath that started 1 week past since the weather is change. Using his nebulizer treatments without any preventive symptoms, today symptoms worsen so he came to the emergency room for further evaluation Discharge Diagnosis: Asthma exacerbation Plan Admit to medicine Start high-dose steroids, breathing treatments DVT prophylaxis Patient is much better, no SOB and wants to go home. The steroids really helped and he ran out of medications and need refills Disposition: DC- TO HOME OR SELFCARE Time spent for discharge: 35 minutes Core Measure Documentation - Palliative Care Palliative Care/ Comfort Measures: Not Applicable - Core Measures Any of the following diagnoses?: none - VTE Discharge Requirements Deep Vein Thrombosis/Pulmonary Embolism Present on Admission: No Has pt received <5 days of overlap therapy or INR<2.0: No Anticoagulant overlap therapy prescribed at discharge: No Contraindication No Overlap Therapy order at DC: Not Indicated Exam - Physical Exam Narrative exam: Gen: WDWN, NAD, Awake, Alert, Orientated HEENT: NCAT, EOMI, PERRL, OP Clear Neck: supple, no adenopathy, no thyromegaly, no JVD CVS/Heart: RRR, normal S1S2, pulses present bilaterally Chest/Lungs: bilateral wheezing, Symmetrical chest expansion, good air entry bilaterally GI/Abdomen: soft, NTND, good bowel sounds, no guarding or rebound /Bladder: no suprapubic tenderness, no CVA or paraspinal tenderness Extermity/Skin: no c/c/e, no obvious rash MSK: FROM x 4 Neuro: CN 2-12 grossly intact, no new focal deficits Psych: calm - Constitutional Vitals: Temp Pulse Resp BP Pulse Ox 98.3 F 110 H 16 129/60 97 08/07/19 07:47 08/07/19 07:47 08/07/19 07:47 08/07/19 07:47 08/07/19 07:47 Plan Activity: other (no strenous activity unless cleared by PCP) Diet: regular Follow up with: PRIMARY CARE, [Primary Care Provider] - 3-5 Days Prescriptions: Fluticasone/Salmeterol [Advair Diskus 250-50 mcg] 1 puff IH BID #1 disk.w.dev Albuterol Sulfate [Albuterol 0.63% NEBS] 0.63 mg IH Q4H PRN 30 Days #30 ml PRN Reason: Shortness Of Breath methylPREDNISolone [Medrol 4MG DOSEPAK (21 tabs)] 1 dose PO DAILY #1 pack ALBUTEROL Inhaler (OR & NICU) [ProAir HFA Inhaler] 1 puff IH Q4H PRN #1 unit PRN Reason: Shortness Of Breath Budesonide [Pulmicort Respules] 0.5 mg IH Q12HR 30 Days #30 nebu
[2019-08-07] MEDS ORDERED: ENOXAPARIN 40 MG/0.4 ML INJ SUB-Q SCH (10:00)
[2019-08-07] MEDS ORDERED: ENOXAPARIN 30 MG/0.3 ML INJ SUB-Q SCH (10:00)
[2019-08-07 11:49] VITALS: BP 118/50
== END 2019-08-07 12:06 | disposition home or self-care (01) ==
LOC: ED 22:13 → 3A 08-07 01:31 → INTOOBSV 08-07 01:31
PROVIDERS: ADMIT Internal Medicine; ATTEND Internal Medicine
DX: J45.901 Unspecified asthma with (acute) exacerbation (principal); F17.200 Nicotine dependence, unspecified, uncomplicated; Z90.49 Acquired absence of other specified parts of digestive tract
CPT/HCPCS: 36415; 71045; 80048; 85007; 85025; 94640; 94644; 96365; 96372; 96375; 99291; G0378; J1650; J2930; J3475

== ENCOUNTER 2019-11-23 22:19 | Emergency (ER) | payer MEDICAID ==
[2019-11-23 22:30] VITALS: BP 123/67
--- NOTE | 2019-11-23 23:30 | XRay Report ---
CHEST 2 VIEWS INDICATION / CLINICAL INFORMATION: SOB, ASTHMATIC ATTACK WITH WHEEZING. COMPARISON: One view of the chest from 08/06/2019. FINDINGS: SUPPORT DEVICES: None. HEART / MEDIASTINUM: No significant abnormality. LUNGS / PLEURA: No significant pulmonary or pleural abnormality. No pneumothorax. ADDITIONAL FINDINGS: No significant additional findings. IMPRESSION: 1. No acute abnormality of the chest. Signer Name: Feliz Fagan MD Signed: 11/23/2019 11:26 PM Workstation Name: [id number]
[2019-11-24] MEDS ORDERED: ALBUTEROL 2.5 MG/3 ML NEBU IH ONE (00:41)
[2019-11-24] MEDS ORDERED: dexAMETHasone 20 MG/5 ML VIAL IM ONE (00:41)
[2019-11-24] MEDS ORDERED: IPRATROPIUM 0.02% NEBU 2.5 ML IH ONE (00:41)
--- NOTE | 2019-11-24 01:38 | Emergency Department Report ---
ED Asthma HPI - General Chief Complaint: Adult Asthma Stated Complaint: ASTHMA Time Seen by Provider: 11/24/19 00:18 Source: patient Mode of arrival: Ambulatory Limitations: No Limitations - History of Present Illness Initial Comments: Patient is a 24-year-old male presents emergency room with complaints of an asthma exacerbation that began yesterday. He has associated wheezing, shortness of breath, mild dry cough. He denies any fever, rhinorrhea, congestion, sore throat, ear pain. He states that he used his nebulizer treatment approximately 3-4 times yesterday. He denies any other past medical history. He states he has an allergy to penicillin. He states he is a non-smoker but states that he is around smokers. - Related Data Previous Rx's Medication Instructions Recorded Last Taken Type Fluticasone/Salmeterol [Advair 1 each IH BID 30 Days blst.w.dev 12/30/17 Unknown Rx 250-50 Diskus] Albuterol INH(or & Nicu Only) 1 puff IH Q4H PRN #1 unit 08/07/19 Unknown Rx [ProAir HFA Inhaler] Albuterol Sulfate [Albuterol 0.63% 0.63 mg IH Q4H PRN 30 Days #30 ml 08/07/19 Unknown Rx NEBS] Budesonide [Pulmicort Respules] 0.5 mg IH Q12HR 30 Days #30 nebu 08/07/19 Unknown Rx Fluticasone/Salmeterol [Advair 1 puff IH BID #1 disk.w.dev 08/07/19 Unknown Rx Diskus 250-50 mcg] methylPREDNISolone [Medrol 4MG 1 dose PO DAILY #1 pack 08/07/19 Unknown Rx DOSEPAK (21 tabs)] predniSONE [Deltasone] 40 mg PO DAILY 7 Days #14 tablet 11/24/19 Unknown Rx Allergies Allergy/AdvReac Type Severity Reaction Status Date / Time amoxicillin Allergy Hives Verified 11/02/15 09:58 Penicillins Allergy Hives Verified 11/02/15 09:58 ED Review of Systems ROS: Stated complaint: ASTHMA Other details as noted in HPI Comment: All other systems reviewed and negative ED Past Medical Hx - Past Medical History Hx Congestive Heart Failure: No Hx Diabetes: No Hx Asthma: Yes Hx COPD: No Hx HIV: No - Surgical History Hx Appendectomy: Yes - Social History Smoking Status: Never Smoker Substance Use Type: None - Medications Home Medications: Home Medications Medication Instructions Recorded Confirmed Last Taken Type Fluticasone/Salmeterol [Advair 1 each IH BID 30 Days blst.w.dev 12/30/17 Unknown Rx 250-50 Diskus] Albuterol INH(or & Nicu Only) 1 puff IH Q4H PRN #1 unit 08/07/19 Unknown Rx [ProAir HFA Inhaler] Albuterol Sulfate [Albuterol 0.63% 0.63 mg IH Q4H PRN 30 Days #30 ml 08/07/19 Unknown Rx NEBS] Budesonide [Pulmicort Respules] 0.5 mg IH Q12HR 30 Days #30 nebu 08/07/19 Unknown Rx Fluticasone/Salmeterol [Advair 1 puff IH BID #1 disk.w.dev 08/07/19 Unknown Rx Diskus 250-50 mcg] methylPREDNISolone [Medrol 4MG 1 dose PO DAILY #1 pack 08/07/19 Unknown Rx DOSEPAK (21 tabs)] predniSONE [Deltasone] 40 mg PO DAILY 7 Days #14 tablet 11/24/19 Unknown Rx ED Physical Exam - General Limitations: No Limitations General appearance: alert, in no apparent distress - Head Head exam: Present: atraumatic, normocephalic - Eye Eye exam: Present: normal appearance - ENT ENT exam: Present: normal orophraynx, mucous membranes moist, TM's normal bilaterally, normal external ear exam - Respiratory Respiratory exam: Present: wheezes (expiratory bilaterally), prolonged expiratory. Absent: respiratory distress, rales, rhonchi, stridor, chest wall tenderness, accessory muscle use, decreased breath sounds - Cardiovascular Cardiovascular Exam: Present: regular rate, normal rhythm, normal heart sounds. Absent: systolic murmur, diastolic murmur, rubs, gallop - Neurological Exam Neurological exam: Present: alert, oriented X3 - Psychiatric Psychiatric exam: Present: normal affect, normal mood - Skin Skin exam: Present: warm, dry, intact ED Course Vital Signs 11/23/19 22:26 Temperature 98.4 F Pulse Rate 89 Respiratory 20 Rate Blood Pressure 123/67 O2 Sat by Pulse 96 Oximetry ED Medical Decision Making - Radiology Data Radiology results: report reviewed CHEST 2 VIEWS INDICATION / CLINICAL INFORMATION: SOB, ASTHMATIC ATTACK WITH WHEEZING. COMPARISON: One view of the chest from 08/06/2019. FINDINGS: SUPPORT DEVICES: None. HEART / MEDIASTINUM: No significant abnormality. LUNGS / PLEURA: No significant pulmonary or pleural abnormality. No pneumothorax. ADDITIONAL FINDINGS: No significant additional findings. IMPRESSION: 1. No acute abnormality of the chest. Signer Name: Feliz Fagan MD Signed: 11/23/2019 11:26 PM Workstation Name: [id number] Transcribed By: PRADEEP Dictated By: Feliz Fagan MD Electronically Authenticated By: Feliz Fagan MD Signed Date/Time: 11/23/192325 DD/ 24 TD/TT: - Medical Decision Making Patient is a 24-year-old male presents emergency room with complaints of an asthma exacerbation that began yesterday. He has associated wheezing, shortness of breath, mild dry cough. He denies any fever, rhinorrhea, congestion, sore throat, ear pain. He states that he used his nebulizer treatment approximately 3-4 times yesterday. He denies any other past medical history. He states he has an allergy to penicillin. He states he is a non-smoker but states that he is around smokers. Vitals are normal. On exam patient has expiratory wheezing and prolonged expiratory phase, no respiratory distress, no accessory muscle use. CXR ordered prior to my evaluation with no acute process. Patient given nebulizer treatment and steroids and breathing significantly improved. Patient given prescription for steroids. Advised patient to continue to use his nebulizer treatments. Take medication as prescribed. Follow-up with a primary care doctor in the next 2 to 3 days for chronic management of his asthma. Avoid secondhand smoke. Return to the emergency room for any new or worsening symptoms. - Differential Diagnosis asthma, viral illness, allergies, URI, PNA, influenza Critical care attestation.: If time is entered above; I have spent that time in minutes in the direct care of this critically ill patient, excluding procedure time. ED Disposition Clinical Impression: Acute asthma exacerbation Qualifiers: Asthma severity: unspecified severity Asthma persistence: unspecified Qualified Code(s): J45.901 - Unspecified asthma with (acute) exacerbation Disposition: - TO HOME OR SELFCARE Is pt being admited?: No Does the pt Need Aspirin: No Condition: Stable Instructions: Asthma (ED) Additional Instructions: continue to use your nebulizer treatments. Take medication as prescribed. Follow-up with a primary care doctor in the next 2 to 3 days for chronic management of your asthma. Avoid secondhand smoke. Return to the emergency room for any new or worsening symptoms. Prescriptions: predniSONE [Deltasone] 40 mg PO DAILY 7 Days #14 tablet Referrals: RUDI MARTINEZ MD [Staff Physician] - 2-3 Days [facility] [Outside] - 2-3 Days [facility] [Outside] - 2-3 Days Time of Disposition: 01:37 Print Language: ALBANIAN
== END 2019-11-24 01:51 | disposition home or self-care (01) ==
LOC: ED 22:19
DX: J45.901 Unspecified asthma with (acute) exacerbation (principal); Z90.49 Acquired absence of other specified parts of digestive tract; Z79.899 Other long term (current) drug therapy; Z88.1 Allergy status to other antibiotic agents; Z88.0 Allergy status to penicillin
CPT/HCPCS: 71046; 94640; 96372; 99283; J1100